=== PATIENT | male | born 1995 | race Hispanic/Latino ===

== ENCOUNTER 2021-04-17 15:36 | Emergency (ER) | payer SELFPAY ==
[~2021-04-17] VITALS: Ht 152.4 cm; Wt 60.0 kg
[2021-04-17] MEDS ORDERED: IBUPROFEN600 MG PO (17:12)
[2021-04-17 17:35] VITALS: BP 159/67
== END 2021-04-17 17:35 | disposition home or self-care (01) | DRG 605 ==
LOC: ED 15:36
DX: S40.011A Contusion of right shoulder, initial encounter (principal); W11.XXXA Fall on and from ladder, initial encounter; Y92.74 Orchard as the place of occurrence of the external cause; Y99.0 Civilian activity done for income or pay